=== PATIENT | female | born 1980 | race Caucasian/White ===

== ENCOUNTER 2020-12-22 20:47 | Emergency (ER) | payer OTHER ==
[2020-12-22 22:14] LABS: HEMOGLOBIN 11.8 gm/dl (12.3-15.3); RED BLOOD COUNT 3.89 M/UL (4.00-5.10); WHITE BLOOD COUNT 6.5 K/UL (4.5-11.0)
== END 2020-12-23 01:20 | disposition home or self-care (01) ==
LOC: ER1 20:47
PROVIDERS: Physician Assistant Medical
DX: U07.1 COVID-19 (principal); L03.115 Cellulitis of right lower limb; J44.9 Chronic obstructive pulmonary disease, unspecified; Z90.49 Acquired absence of other specified parts of digestive tract
CPT/HCPCS: 80053; 83605; 85025; 87040; 99283